=== PATIENT | male | born 1940 | race Caucasian/White ===

== ENCOUNTER → 2018-01-10 | Outpatient (CLI) | payer MEDICARE, BC | END | disposition home or self-care (01) | LOC: CFH 10:37 | PROVIDERS: ATTEND Internal Medicine | DX: Z12.2 Encounter for screening for malignant neoplasm of respiratory organs (principal); I25.10 Atherosclerotic heart disease of native coronary artery without angina pectoris; R91.1 Solitary pulmonary nodule; Z87.891 Personal history of nicotine dependence; I10 Essential (primary) hypertension; E11.9 Type 2 diabetes mellitus without complications; E03.9 Hypothyroidism, unspecified; E55.9 Vitamin D deficiency, unspecified; E78.5 Hyperlipidemia, unspecified; J44.0 Chronic obstructive pulmonary disease with (acute) lower respiratory infection; J44.1 Chronic obstructive pulmonary disease with (acute) exacerbation; D75.1 Secondary polycythemia; J20.9 Acute bronchitis, unspecified | CPT/HCPCS: G0297 ==

== ENCOUNTER → 2018-06-28 | Outpatient (CLI) | payer BC, MEDICARE | END | disposition home or self-care (01) | LOC: CFH 10:37 | PROVIDERS: ATTEND Internal Medicine | DX: R91.1 Solitary pulmonary nodule (principal); J44.1 Chronic obstructive pulmonary disease with (acute) exacerbation; J44.0 Chronic obstructive pulmonary disease with (acute) lower respiratory infection; I10 Essential (primary) hypertension; E11.9 Type 2 diabetes mellitus without complications | CPT/HCPCS: 71250 ==

== ENCOUNTER → 2019-07-03 | Outpatient (CLI) | payer BC, MEDICARE | END | disposition home or self-care (01) | LOC: CFH 09:43 | PROVIDERS: ATTEND Internal Medicine | DX: D75.1 Secondary polycythemia (principal); R91.8 Other nonspecific abnormal finding of lung field; J44.9 Chronic obstructive pulmonary disease, unspecified; F17.211 Nicotine dependence, cigarettes, in remission; Z79.899 Other long term (current) drug therapy; Z88.1 Allergy status to other antibiotic agents | CPT/HCPCS: 71250 ==

== ENCOUNTER → 2019-08-21 | Outpatient (CLI) | payer BC, MEDICARE | END | disposition home or self-care (01) | LOC: PETCFH 09:18 | PROVIDERS: ATTEND Internal Medicine | DX: R91.1 Solitary pulmonary nodule (principal); N28.1 Cyst of kidney, acquired; I25.10 Atherosclerotic heart disease of native coronary artery without angina pectoris | CPT/HCPCS: 78815; A9552 ==

== ENCOUNTER 2019-12-17 11:57 | Inpatient (IN) | payer MEDICARE ==
[~2019-12-17] VITALS: Ht 177.8 cm; Wt 78.0 kg
--- NOTE | 2019-12-17 12:20 | NUR ---
Report to Payal KAPOOR, Dr. Mojica informed of pts critical condition.
--- NOTE | 2019-12-17 12:39 | NUR ---
Pt here for sob and resp distress. Pt reports that he was at pulmonary office and sent to ED for heart acting funny. Pt reports that at home his pulse ox has been in 75%-85% on 4.5L of a concentrator. Pt callled RT and pt placed on optiflow on 30% O2 and 40L at this time and PIV access established. Pt color was dusky and blue. Pts cap refill was about 6 seconds. Pt connected to all monitors and call light in reach.
--- NOTE | 2019-12-17 12:55 | NUR ---
Verbal Order for ABG obtained and charge account identification clerk made aware.
--- NOTE | 2019-12-17 13:02 | NUR ---
REPORT FROM LEANDRO RN, RT AT BS.
--- NOTE | 2019-12-17 13:07 | NUR ---
REPORT TO JONAS KAPOOR
[2019-12-17] MEDS ORDERED: methylPREDNISolone SOD SUCC 125 MG/2 ML ONE (13:18)
[2019-12-17] MEDS ORDERED: SODIUM CHLORIDE FLUSH 10ML SYR IVF ONE (13:30)
[2019-12-17] MEDS ORDERED: methylPREDNISolone SOD SUCC 125 MG/2 ML IV ONE (13:30)
--- NOTE | 2019-12-17 13:30 | NUR ---
MED GIVEN PER ERP ORDER. ECHO BEING COMPLETED AT BS. CALL LIGHT WITHIN REACH, AT BS.
[2019-12-17] MEDS ORDERED: LISI-167 PO (13:36)
[2019-12-17] MEDS ORDERED: METH4TAB7 PO (13:36)
[2019-12-17] MEDS ORDERED: FLUT1BLS3 IH (13:36)
[2019-12-17 13:40] LABS: BASOPHILS % (AUTO) 0 % (0-1); EOSINOPHILS # (AUTO) 0.05 x10^3/uL (0-0.4); EOSINOPHILS % (AUTO) 0 % (1-7); LYMPHOCYTES # (AUTO) 0.64 x10^3/uL (1-3.4); LYMPHOCYTES % (AUTO) 4 % (22-44); MD NO; MEAN CORPUSCULAR HEMOGLOBIN 29.7 pg (27.5-34.5); MEAN CORPUSCULAR HGB CONC 31.9 g/dL (33.2-36.2); MEAN CORPUSCULAR VOLUME 93.2 fL (81-97); MEAN PLATELET VOLUME 7.8 fL (7.4-10.4); MONOCYTES # (AUTO) 0.68 x10^3/uL (0.2-0.8); MONOCYTES % (AUTO) 4 % (2-9); NEUTROPHILS # (AUTO) 14.01 x10^3/uL (1.8-6.8); NEUTROPHILS % (AUTO) 91 % (42-75); PLATELET COUNT 212 x10^3/uL (130-400); RED BLOOD COUNT 6.65 x10^6/uL (4.38-5.82); RED CELL DISTRIBUTION WIDTH 15.6 % (9.4-14.8)
[2019-12-17 13:50] LABS: ALBUMIN 3.7 g/dL (3.4-5.0); ANION GAP 6 mmol/L (5-15); CALCIUM 8.9 mg/dL (8.5-10.1); CHLORIDE 100 mmol/L (98-107)
[2019-12-17 13:54] LABS: ALANINE AMINOTRANSFERASE 113 U/L (12-78); ALKALINE PHOSPHATASE 106 U/L (45-117); BILIRUBIN,TOTAL 1.4 mg/dL (0.2-1.0); CREATININE 1.15 mg/dL (0.7-1.3); TOTAL PROTEIN 6.9 g/dL (6.4-8.2)
--- NOTE | 2019-12-17 14:30 | NUR ---
URINAL PROVIDED, PT ABLE TO STAND AT BS TO USE WITHOUT DISTRESS.
[2019-12-17] MEDS ORDERED: ACETAMINOPHEN 325 MG TABLET PO PRN (15:00)
[2019-12-17] MEDS: ALBUTEROL/IPRATROPIUM 2.5MG/0.5MG, 3 ML HHN SCH ×2 (15:00→20:00)
[2019-12-17] MEDS ORDERED: ONDANSETRON 2MG/ML, 2ML IVPush PRN (15:00)
--- NOTE | 2019-12-17 15:14 | NUR ---
PT TO CT.
[2019-12-17] MEDS ORDERED: OMNIPAQUE 350 MG/ML, 100ML BOTTLE ONE (15:38)
--- NOTE | 2019-12-17 15:38 | NUR ---
PT BACK FROM [facility]. AWAITING BC X 2 TO BE DRAWN PRIOR TO ANTIBIOTIC INFUSION ORDERED.
[2019-12-17] MEDS ORDERED: CEFTRIAXONE PMX 1GM/50ML 50 ML ONE (15:41)
[2019-12-17] MEDS: CEFTRIAXONE PMX 1GM/50ML 50 ML IV SCH (15:50)
--- NOTE | 2019-12-17 15:51 | NUR ---
BC X 2 DRAWN BY [facility].
--- NOTE | 2019-12-17 15:59 | NUR ---
REPORT TO ROGER KAPOOR, PT READY FOR TRANSPORT TO FLOOR.
[2019-12-17 16:55] VITALS: BP 145/94
[2019-12-17] MEDS: GUAIFENESIN 200 MG TABLET PO SCH ×2 (17:29→20:33)
[2019-12-17 18:27] VITALS: BP 146/97
[2019-12-17] MEDS: BUDESONIDE 0.5 MG/2 ML INHA INH SCH (20:00)
[2019-12-17] MEDS: HEPARIN 5,000 UNITS/ML, 1ML SQ SCH (20:33)
[2019-12-17] MEDS: LISINOPRIL 10 MG TABLET PO SCH (20:33)
[2019-12-17] MEDS: AZITHROMYCIN 500 MG in SODIUM CHLORIDE 0.9% 250 ML IV SCH (20:34)
[2019-12-17] MEDS ORDERED: ALBUTEROL SULFATE 2.5 MG/3 ML NPPB SCH (21:00)
[2019-12-18 00:38] VITALS: BP 106/70
[2019-12-18] MEDS: ALBUTEROL/IPRATROPIUM 2.5MG/0.5MG, 3 ML HHN SCH ×4 (03:26→20:04)
[2019-12-18 05:01] LABS: BASOPHILS # (AUTO) 0.01 x10^3/uL (0-0.1); BASOPHILS % (AUTO) 0 % (0-1); EOSINOPHILS # (AUTO) 0.01 x10^3/uL (0-0.4); EOSINOPHILS % (AUTO) 0 % (1-7); LYMPHOCYTES # (AUTO) 0.35 x10^3/uL (1-3.4); LYMPHOCYTES % (AUTO) 4 % (22-44); MD NO; MEAN CORPUSCULAR HEMOGLOBIN 29.6 pg (27.5-34.5); MEAN CORPUSCULAR HGB CONC 31.9 g/dL (33.2-36.2); MEAN PLATELET VOLUME 7.6 fL (7.4-10.4); MONOCYTES # (AUTO) 0.28 x10^3/uL (0.2-0.8); MONOCYTES % (AUTO) 4 % (2-9); NEUTROPHILS # (AUTO) 7.26 x10^3/uL (1.8-6.8); NEUTROPHILS % (AUTO) 92 % (42-75); PLATELET COUNT 190 x10^3/uL (130-400); RED BLOOD COUNT 6.27 x10^6/uL (4.38-5.82); RED CELL DISTRIBUTION WIDTH 15.1 % (9.4-14.8)
[2019-12-18 05:09] LABS: ALANINE AMINOTRANSFERASE 75 U/L (12-78); ALBUMIN 2.9 g/dL (3.4-5.0); ANION GAP 6 mmol/L (5-15); CALCIUM 8.1 mg/dL (8.5-10.1); CHLORIDE 105 mmol/L (98-107)
[2019-12-18 05:12] LABS: ALKALINE PHOSPHATASE 78 U/L (45-117); BILIRUBIN,TOTAL 1.2 mg/dL (0.2-1.0); CREATININE 1.15 mg/dL (0.7-1.3); TOTAL PROTEIN 5.5 g/dL (6.4-8.2)
[2019-12-18] MEDS: HEPARIN 5,000 UNITS/ML, 1ML SQ SCH ×3 (05:33→20:26)
[2019-12-18] MEDS: GUAIFENESIN 200 MG TABLET PO SCH ×4 (05:33→20:25)
[2019-12-18 06:59] VITALS: BP 112/70
[2019-12-18] MEDS: BUDESONIDE 0.5 MG/2 ML INHA INH SCH (07:15)
[2019-12-18 12:56] VITALS: BP 107/69
[2019-12-18] MEDS: CEFTRIAXONE PMX 1GM/50ML 50 ML IV SCH (16:04)
[2019-12-18 18:59] VITALS: BP 117/71
[2019-12-18] MEDS: LISINOPRIL 10 MG TABLET PO SCH (20:26)
[2019-12-18] MEDS: AZITHROMYCIN 500 MG in SODIUM CHLORIDE 0.9% 250 ML IV SCH (20:38)
[2019-12-19 00:11] VITALS: BP 124/86
[2019-12-19] MEDS: ALBUTEROL/IPRATROPIUM 2.5MG/0.5MG, 3 ML HHN SCH ×2 (02:22→07:30)
[2019-12-19] MEDS: GUAIFENESIN 200 MG TABLET PO SCH ×4 (05:34→20:49)
[2019-12-19] MEDS: HEPARIN 5,000 UNITS/ML, 1ML SQ SCH ×3 (05:34→20:58)
[2019-12-19 06:46] LABS: MEAN CORPUSCULAR HEMOGLOBIN 29.7 pg (27.5-34.5); MEAN CORPUSCULAR VOLUME 92.8 fL (81-97); PLATELET COUNT 183 x10^3/uL (130-400); RED CELL DISTRIBUTION WIDTH 15.6 % (9.4-14.8)
[2019-12-19 06:54] LABS: ANION GAP 10 mmol/L (5-15); CALCIUM 7.9 mg/dL (8.5-10.1); CHLORIDE 105 mmol/L (98-107); CREATININE 0.93 mg/dL (0.7-1.3)
[2019-12-19 06:59] VITALS: BP 125/80
[2019-12-19 07:15] LABS: BASOPHILS % (AUTO) 0 % (0-1); EOSINOPHILS # (AUTO) 0.21 x10^3/uL (0-0.4); EOSINOPHILS % (AUTO) 2 % (1-7); LYMPHOCYTES # (AUTO) 1.35 x10^3/uL (1-3.4); LYMPHOCYTES % (AUTO) 11 % (22-44); MD SCAN; MONOCYTES # (AUTO) 0.81 x10^3/uL (0.2-0.8); MONOCYTES % (AUTO) 7 % (2-9); NEUTROPHILS # (AUTO) 10.18 x10^3/uL (1.8-6.8); NEUTROPHILS % (AUTO) 81 % (42-75)
[2019-12-19] MEDS: BUDESONIDE 0.5 MG/2 ML INHA NPPB SCH ×2 (13:00→20:25)
[2019-12-19] MEDS: ALBUTEROL/IPRATROPIUM 2.5MG/0.5MG, 3 ML NPPB SCH ×3 (13:00→19:30)
[2019-12-19 13:44] VITALS: BP 96/54
[2019-12-19 16:13] VITALS: BP 130/82
[2019-12-19] MEDS: CEFTRIAXONE PMX 1GM/50ML 50 ML IV SCH (17:01)
[2019-12-19] MEDS: DILTIAZEM 30 MG TABLET PO SCH ×2 (17:02→20:49)
[2019-12-19 17:26] LABS: FREE T4 (FREE THYROXINE) 1.17 ng/dL (0.76-1.46)
[2019-12-19 18:34] VITALS: BP 95/62
[2019-12-19] MEDS: LISINOPRIL 10 MG TABLET PO SCH (20:49)
[2019-12-19] MEDS: AZITHROMYCIN 500 MG in SODIUM CHLORIDE 0.9% 250 ML IV SCH (20:49)
[2019-12-20 00:32] VITALS: BP 98/64
[2019-12-20] MEDS: ALBUTEROL/IPRATROPIUM 2.5MG/0.5MG, 3 ML NPPB SCH ×4 (02:23→19:45)
[2019-12-20 04:33] LABS: BASOPHILS # (AUTO) 0.03 x10^3/uL (0-0.1); BASOPHILS % (AUTO) 0 % (0-1); EOSINOPHILS # (AUTO) 0.21 x10^3/uL (0-0.4); EOSINOPHILS % (AUTO) 2 % (1-7); LYMPHOCYTES # (AUTO) 0.63 x10^3/uL (1-3.4); LYMPHOCYTES % (AUTO) 6 % (22-44); MD NO; MEAN CORPUSCULAR HEMOGLOBIN 29.8 pg (27.5-34.5); MEAN CORPUSCULAR HGB CONC 32.4 g/dL (33.2-36.2); MEAN CORPUSCULAR VOLUME 92.1 fL (81-97); MEAN PLATELET VOLUME 7.6 fL (7.4-10.4); MONOCYTES # (AUTO) 0.82 x10^3/uL (0.2-0.8); MONOCYTES % (AUTO) 8 % (2-9); NEUTROPHILS % (AUTO) 83 % (42-75); PLATELET COUNT 141 x10^3/uL (130-400); RED BLOOD COUNT 5.88 x10^6/uL (4.38-5.82); RED CELL DISTRIBUTION WIDTH 15.2 % (9.4-14.8)
[2019-12-20 04:36] LABS: ANION GAP 6 mmol/L (5-15); CALCIUM 7.9 mg/dL (8.5-10.1); CHLORIDE 106 mmol/L (98-107)
[2019-12-20 04:37] LABS: CREATININE 1.06 mg/dL (0.7-1.3)
[2019-12-20] MEDS: HEPARIN 5,000 UNITS/ML, 1ML SQ SCH ×3 (05:31→21:59)
[2019-12-20] MEDS: GUAIFENESIN 200 MG TABLET PO SCH ×4 (05:31→20:29)
[2019-12-20 09:18] VITALS: BP 122/88
[2019-12-20] MEDS: BUDESONIDE 0.5 MG/2 ML INHA NPPB SCH ×2 (09:28→19:57)
[2019-12-20] MEDS: DILTIAZEM 30 MG TABLET PO SCH ×3 (10:08→20:29)
[2019-12-20] MEDS: CEFTRIAXONE PMX 1GM/50ML 50 ML IV SCH (14:30)
[2019-12-20 16:31] VITALS: BP 146/87
[2019-12-20 20:27] VITALS: BP 131/71
[2019-12-20] MEDS: LISINOPRIL 10 MG TABLET PO SCH (20:29)
[2019-12-20] MEDS: AZITHROMYCIN 500 MG in SODIUM CHLORIDE 0.9% 250 ML IV SCH (20:29)
[2019-12-21 01:59] VITALS: BP 110/86
[2019-12-21] MEDS: ALBUTEROL/IPRATROPIUM 2.5MG/0.5MG, 3 ML NPPB SCH ×2 (02:16→09:10)
[2019-12-21] MEDS: HEPARIN 5,000 UNITS/ML, 1ML SQ SCH ×2 (05:43→13:29)
[2019-12-21] MEDS: GUAIFENESIN 200 MG TABLET PO SCH ×2 (05:43→10:49)
[2019-12-21 06:01] LABS: ANION GAP 8 mmol/L (5-15); CALCIUM 8.2 mg/dL (8.5-10.1); CHLORIDE 102 mmol/L (98-107)
[2019-12-21 06:02] LABS: CREATININE 1.06 mg/dL (0.7-1.3)
[2019-12-21 06:04] LABS: BASOPHILS # (AUTO) 0.02 x10^3/uL (0-0.1); BASOPHILS % (AUTO) 0 % (0-1); EOSINOPHILS % (AUTO) 3 % (1-7); LYMPHOCYTES % (AUTO) 9 % (22-44); MD NO; MEAN CORPUSCULAR HEMOGLOBIN 29.6 pg (27.5-34.5); MEAN CORPUSCULAR HGB CONC 31.7 g/dL (33.2-36.2); MEAN CORPUSCULAR VOLUME 93.3 fL (81-97); MONOCYTES # (AUTO) 0.71 x10^3/uL (0.2-0.8); MONOCYTES % (AUTO) 9 % (2-9); NEUTROPHILS # (AUTO) 6.16 x10^3/uL (1.8-6.8); NEUTROPHILS % (AUTO) 79 % (42-75); PLATELET COUNT 135 x10^3/uL (130-400); RED BLOOD COUNT 6.01 x10^6/uL (4.38-5.82); RED CELL DISTRIBUTION WIDTH 15.1 % (9.4-14.8)
[2019-12-21 06:23] VITALS: BP 133/88
[2019-12-21] MEDS: DILTIAZEM 30 MG TABLET PO SCH (08:43)
[2019-12-21] MEDS: BUDESONIDE 0.5 MG/2 ML INHA NPPB SCH (09:10)
[2019-12-21 13:13] VITALS: BP 118/67
[2019-12-21] MEDS ORDERED: DILT30TA27 PO (14:08)
== END 2019-12-21 15:38 | disposition home or self-care (01) | DRG 193 ==
LOC: ED 13:37 → EDIP 14:09 → 4WST 16:27 → DCLOUNGE 12-21 15:20
PROVIDERS: ADMIT Internal Medicine; ATTEND Hospitalist
DX: J18.9 Pneumonia, unspecified organism (principal); J96.21 Acute and chronic respiratory failure with hypoxia; J44.1 Chronic obstructive pulmonary disease with (acute) exacerbation; E87.1 Hypo-osmolality and hyponatremia; I48.92 Unspecified atrial flutter; D75.1 Secondary polycythemia; E87.70 Fluid overload, unspecified; I10 Essential (primary) hypertension; R73.9 Hyperglycemia, unspecified; T38.0X5A Adverse effect of glucocorticoids and synthetic analogues, initial encounter; Z87.891 Personal history of nicotine dependence; Z99.81 Dependence on supplemental oxygen; Y92.89 Other specified places as the place of occurrence of the external cause
CPT/HCPCS: 36415; 36600; 71045; 71275; 80048; 80053; 82803; 84145; 84439; 84443; 84484; 85025; 87040; 93005; 93306; 94640; 96374; 99285; G0378; J0456; J0696; J1644; J7626; Q9967; J2930; J7050